=== PATIENT | male | born 1950 | race Caucasian/White ===

== ENCOUNTER → 2021-01-17 | Outpatient (CLI) | payer MEDICARE ==
[~2021-01-17] MED LIST: ASP325TEC PO; ASP81TEC PO; LISI10TA PO; MTP50T PO
--- NOTE | 2021-01-17 12:48 | Diagnostic Imaging Report ---
EXAMINATION: CT Abdomen Pelvis without contrast. TECHNIQUE: Multiple contiguous axial images were obtained through the abdomen and pelvis without the use of intravenous contrast. All CT scans use one or more of the following dose optimizing techniques: automated exposure control, MA and/or KvP adjustment based on a patient size and exam type, or iterative reconstruction. HISTORY: History of prostate cancer. COMPARISON: None available. FINDINGS: Lung bases: Bibasilar dependent atelectasis. Solid organs: The liver is normal. The gallbladder is normal. There is no biliary ductal dilation. Pancreas is normal. Spleen is normal. Adrenal glands are normal. The kidneys are normal without visualized calculus or hydronephrosis. Bowel: The stomach and small bowel are normal without obstruction. There is scattered colonic diverticulosis. The appendix is normal. Peritoneum: There is no intraperitoneal free fluid or free air. No suspicious lymphadenopathy. Vasculature: Calcification of the aorta without aneurysm. Musculoskeletal: Degenerative changes of the spine without suspicious osseous lesion or compression fracture. There are small bilateral fat-containing inguinal hernias. Surgical changes from anterior ventral abdominal hernia repair. Pelvis: The prostate gland is enlarged. There is mild bladder wall thickening. IMPRESSION: 1. No findings of metastatic disease within the abdomen or pelvis. 2. Mild bladder wall thickening. This could be related to chronic bladder outlet obstruction or infectious/inflammatory process. Recommend correlation with urinalysis. Dictated by: Dictated on workstation # [id number]
--- NOTE | 2021-01-17 16:46 | Diagnostic Imaging Report ---
INDICATION: Prostate carcinoma. TECHNIQUE: Patient was administered 24.5 mCi technetium 99m MDP intravenously and whole-body imaging was performed after 3 hour delay. COMPARISON: No prior study is available for comparison. FINDINGS: There is normal uptake of activity by the axial and appendicular skeleton. There is uptake by both kidneys with excretion to the urinary bladder. No suspicious foci are identified to suggest osseous metastatic disease. There are degenerative changes in the left ankle and right foot. IMPRESSION: No scintigraphic evidence of osseous metastatic disease. Dictated by: Dictated on workstation # [id number]
== END ==
LOC: CARD 12:00
PROVIDERS: ATTEND Urology
DX: N32.89 Other specified disorders of bladder (principal)
CPT/HCPCS: 74176; 78306; A9503

== ENCOUNTER 2021-01-29 14:16 | Outpatient (RCR) | payer MEDICARE | END 2021-04-29 | disposition home or self-care (01) | LOC: ONC 14:16 | PROVIDERS: ATTEND Radiology Radiation Oncology | DX: C61 Malignant neoplasm of prostate (principal); I10 Essential (primary) hypertension | CPT/HCPCS: 76873; G0463; 99204 ==